=== PATIENT | male | born 1965 | race African-American/Black ===

== ENCOUNTER 2020-04-19 13:22 | Emergency (ER) | payer OTHER ==
[2020-04-19] MEDS ORDERED: ONDANSETRON HCL INJ/PF 4 MG/2 ML SDV IV ONE ×2 (13:34→15:10)
--- NOTE | 2020-04-19 13:35 | ER Document Report ---
ED Medical Screen (RME) - General Chief Complaint: Nausea/Vomiting Stated Complaint: NAUSEA,VOMITING,FEVER Time Seen by Provider: 04/19/20 13:30 Primary Care Provider: LISETTE VALDES MD [Primary Care Provider] - Follow up as needed Notes: Patient presents complaining of abdominal pain that started yesterday that has persisted today. Patient states pain initially started to left lower quadrant but has moved to the generalized abdominal area. Patient states today around 1030 he developed chest pain. Patient reports nausea and vomiting times multiple episodes with some mild shortness of breath. Patient denies any cough or cold symptoms. Patient denies diarrhea. Patient states that he will very cold as well. Patient does have a history of hypertension, diabetes and dyslipidemia. I have greeted and performed a rapid initial assessment of this patient. A comprehensive ED assessment and evaluation of the patient, analysis of test results and completion of the medical decision making process will be conducted by additional ED providers. TRAVEL OUTSIDE OF THE [place] IN LAST 30 DAYS: No - Related Data Allergies/Adverse Reactions: No Known Allergies Allergy (Verified 04/19/20 13:30) Physical Exam - Vital signs Vitals: Temp Pulse Resp BP Pulse Ox 97.9 F 76 20 132/80 H 95 04/19/20 13:25 04/19/20 13:25 04/19/20 13:25 04/19/20 13:25 04/19/20 13:25 - Respiratory Respiratory status: No respiratory distress Breath sounds: Normal - Cardiovascular Rhythm: Regular Heart sounds: S1 appreciated, S2 appreciated Course - Vital Signs Vital signs: Temp Pulse Resp BP Pulse Ox 97.9 F 76 20 132/80 H 95 04/19/20 13:25 04/19/20 13:25 04/19/20 13:25 04/19/20 13:25 04/19/20 13:25 Doctor's Discharge - Discharge Referrals: LISETTE VALDES MD [Primary Care Provider] - Follow up as needed
--- NOTE | 2020-04-19 14:32 | RADIOLOGY REPORT (SQ) ---
EXAM DESCRIPTION: ACUTE ABDOMEN SERIES IMAGES COMPLETED DATE/TIME: 04/19/2020 2:22 pm REASON FOR STUDY: cp, abd pain COMPARISON: None. NUMBER OF VIEWS: Three views. TECHNIQUE: Frontal chest, supine abdomen and upright/decubitus abdomen radiographic images acquired. LIMITATIONS: None. FINDINGS: CHEST: Lungs clear of infiltrates. FREE AIR: None. No abnormal gas collections. BOWEL GAS PATTERN: Moderate constipation. No obstruction. CALCIFICATIONS: Soft tissue calcification in both proximal thighs. HARDWARE: None in the abdomen. SOFT TISSUES: No gross mass or suggestion of organomegaly. BONES: No acute fracture. No worrisome bone lesions. OTHER: No other significant finding. IMPRESSION: Moderate constipation. No obstruction. TECHNICAL DOCUMENTATION: JOB ID: [id number] [employer]- All Rights Reserved Reading location - IP/workstation name: [email or web address]
[2020-04-19 14:50] LABS: ABSOLUTE BASOPHILS # (AUTO) 0.1 10^3/uL (0.0-0.2); ABSOLUTE LYMPHOCYTES (AUTO) 1.9 10^3/uL (0.5-4.7); ABSOLUTE MONOCYTES (AUTO) 0.4 10^3/uL (0.1-1.4); ABSOLUTE NEUT (AUTO) 9.5 10^3/uL (1.7-8.2); BASOPHILS % (AUTO) 0.8 % (0-2); HEMATOCRIT 38.9 % (37.9-51.0); HEMOGLOBIN 13.1 g/dL (13.5-17.0); LYMPHOCYTES % (AUTO) 15.7 % (13-45); MEAN CORPUSCULAR HEMOGLOBIN 28.9 pg (27.0-33.4); MEAN CORPUSCULAR HGB CONC 33.7 g/dL (32.0-36.0); MEAN CORPUSCULAR VOLUME 86 fl (80-97); MONOCYTES % (AUTO) 3.5 % (3-13); PLATELET COUNT 389 10^3/uL (150-450); RED BLOOD COUNT 4.53 10^6/uL (4.35-5.55); RED CELL DISTRIBUTION WIDTH 16.6 % (11.5-14.0); TOTAL CELLS COUNTED % (AUTO) 100 %; WHITE BLOOD COUNT 11.8 10^3/uL (4.0-10.5)
[2020-04-19 14:58] LABS: ALBUMIN 4.5 g/dL (3.5-5.0); ALKALINE PHOSPHATASE 80 U/L (38-126); ANION GAP 12 (5-19); ASPARTATE AMINO TRANSFERASE 37 U/L (17-59); BILIRUBIN,TOTAL 1.6 mg/dL (0.2-1.3); BLOOD UREA NITROGEN 16 mg/dL (7-20); CALCIUM 10.1 mg/dL (8.4-10.2); CARBON DIOXIDE 26 mmol/L (22-30); CHLORIDE 101 mmol/L (98-107); GLUCOSE 214 mg/dL (75-110); POTASSIUM 3.9 mmol/L (3.6-5.0); TOTAL PROTEIN 8.2 g/dL (6.3-8.2)
[2020-04-19] MEDS ORDERED: NORMAL SALINE 500 ML IV ONE (15:10)
--- NOTE | 2020-04-19 15:17 | ER Document Report ---
ED General - General Chief Complaint: Abdominal Pain >50 Stated Complaint: NAUSEA,VOMITING,FEVER Time Seen by Provider: 04/19/20 13:30 Primary Care Provider: LISETTE VALDES MD [Primary Care Provider] - Follow up as needed TRAVEL OUTSIDE OF THE [place] IN LAST 30 DAYS: No - HPI Notes: Patient is a 54-year-old male who presents emergency department for evaluation of abdominal pain and chest pain. Yesterday morning he stated he developed left lower quadrant pain. He described as sharp and stabbing, states it felt similar to a gas pain. He states that that pain resolved after a few hours, but he developed pain in his epigastrium up to his chest. He describes that as a pressure. He states that was present since approximately noon yesterday, present constantly since onset, including while at rest, and when he woke this morning. He states he was trying to belch to get the pain to the resolve, at that time he started having episodes of emesis. He reports 5-6 episodes of nonbloody, nonbilious emesis. He had a normal bowel movement this morning. No fevers or chills. He denies any coughing or shortness of breath. He describes the pain again as a pressure it is nonradiating. He denies any associated shortness of breath, diaphoresis, near syncope. - Related Data Allergies/Adverse Reactions: No Known Allergies Allergy (Verified 04/19/20 13:30) Home Medications: List reviewed at bedside Past Medical History - General Information source: Patient - Social History Smoking Status: Current Some Day Smoker - Cigars Frequency of alcohol use: Occasional Drug Abuse: None Family History: Malignancy - Pancreatic cancer in father, Other - CHF - Past Medical History Cardiac Medical History: Reports: Hx Hypercholesterolemia, Hx Hypertension Denies: Hx Coronary Artery Disease, Hx DVT, Hx Heart Attack, Hx Pulmonary Embolism Pulmonary Medical History: Denies: Hx Asthma, Hx COPD Neurological Medical History: Denies: Hx Cerebrovascular Accident, Hx Seizures Endocrine Medical History: Reports: Hx Diabetes Mellitus Type 2 Renal/ Medical History: Denies: Hx End Stage Renal Disease, Hx Renal Insufficiency GI Medical History: Denies: Hx Crohn's Disease, Hx Gastroesophageal Reflux Disease, Hx Ulcerative Colitis Review of Systems - Review of Systems Constitutional: No symptoms reported EENT: No symptoms reported Cardiovascular: See HPI Respiratory: No symptoms reported Gastrointestinal: See HPI Musculoskeletal: No symptoms reported Skin: No symptoms reported Neurological/Psychological: No symptoms reported Physical Exam - Vital signs Vitals: Temp Pulse Resp BP Pulse Ox 97.9 F 76 20 132/80 H 95 04/19/20 13:25 04/19/20 13:25 04/19/20 13:25 04/19/20 13:25 04/19/20 13:25 - Notes Notes: Vital signs reviewed, please refer to chart. Head is normocephalic, atraumatic. Pupils equal round, reactive to light. Neck is supple without meningismus. Heart is regular rate and rhythm. Lungs are clear to auscultation bilaterally. Abdomen is soft, nontender, normoactive bowel sounds throughout. Extremities without cyanosis, clubbing. Posterior calves are nontender. Peripheral pulses are equal. Skin is warm and dry. Patient is awake, alert, neurological exam is nonfocal. Course - Re-evaluation Re-evalutation: 04/19/20 15:19 Patient presents emergency department for evaluation. On history he states that he had a similar episode back in the beginning of March. He complained initially of abdominal pain but his abdomen is entirely nontender. Laboratory investigations are ordered. Patient is currently stable, complaining of some nausea but minimal pain. He is given IV fluids, Zofran. He is on the front desk monitor, showing frequent PVCs which is not a new problem for him. Otherwise no acute complaints, we will continue to monitor. 04/19/20 17:29 Patient has had significant improvement in his nausea and pain after the Zofran and GI cocktail. Is still awaiting his urinalysis. He states he feels he may have to have a bowel movement soon. He did have symptoms consistent more with a gastroenteritis last time around. I explained to the patient that there are multiple possible diagnoses on the differential at this point, but his troponin was negative. Electrolytes are unremarkable. His x-ray only shows constipation. His serial abdominal exams are benign. I strongly encouraged him to follow-up with his primary care provider and discuss possible referral into cardiology for stress test. He has multiple risk factors, and he did have pain into his chest. He voiced understanding. Otherwise the suspect more of a GI etiology. Assuming a normal urinalysis I will send the patient home with Zofran and close follow-up. 04/19/20 17:57 Urinalysis unremarkable. Patient will be discharged with Zofran. - Vital Signs Vital signs: Temp Pulse Resp BP Pulse Ox 97.9 F 76 20 136/71 H 95 04/19/20 13:25 04/19/20 13:25 04/19/20 18:01 04/19/20 18:01 04/19/20 17:00 - Laboratory Results Result Diagrams: 04/19/20 14:10 04/19/20 14:10 Laboratory Results Interpreted: 04/19/20 04/19/20 04/19/20 14:10 14:10 17:05 WBC 11.8 H Hgb 13.1 L RDW 16.6 H Absolute Neuts (auto) 9.5 H Seg Neutrophils % 80.0 H Glucose 214 H Total Bilirubin 1.6 H Urine Glucose (UA) >=500 H Critical Laboratory Results Reviewed: No Critical Results - Radiology Results Radiology Results Interpreted: 04/19/20 17:31 Acute Abdomen Series 04/19/20 13:34 IMPRESSION: Moderate constipation. No obstruction. Critical Radiology Results Reviewed: No Critical Results Discharge - Discharge Clinical Impression: Chest pain, Epigastric pain, Nausea and vomiting Condition: Stable Disposition: HOME, SELF-CARE Instructions: Abdominal Pain ([facility]), Chest Pain of Unclear Cause ([facility]), Nausea or Vomiting, Nonspecific ([facility]) Additional Instructions: No clear cause was identified for your pain today. Follow-up closely with your primary care doctor. He should discuss possible further cardiac testing, including a possible stress test, for your ongoing chest pain given your risk factors. Otherwise Zofran as needed for nausea. Start with clear liquids, advance diet slowly. If you develop increased pain, worsening vomiting, shortness of breath, or any other new or concerning symptoms, please return immediately to the emergency department for evaluation. Prescriptions: Ondansetron [Zofran Odt 4 mg Tablet] 1 - 2 tab PO Q4H PRN #15 tab.rapdis PRN Reason: For Nausea/Vomiting Referrals: LISETTE VALDES MD [Primary Care Provider] - Follow up as needed
[2020-04-19] MEDS ORDERED: MAG HYDROX/AL HYDROX/SIMETH SUSP 30 ML UDCUP PO ONE (15:58)
[2020-04-19] MEDS ORDERED: LIDOCAINE 2% VISCOUS SOLN 15 ML UDCUP PO ONE (15:58)
[2020-04-19 17:48] LABS: APPEARANCE,URINE CLEAR; BILIRUBIN,URINE NEGATIVE (NEGATIVE); COLOR,URINE YELLOW; GLUCOSE, URINE >=500 mg/dL (NEGATIVE); KETONES,URINE NEGATIVE (NEGATIVE); LEUKOCYTE ESTERASE,URINE NEGATIVE (NEGATIVE); NITRITE,URINE NEGATIVE (NEGATIVE); PROTEIN,URINE NEGATIVE (NEGATIVE); URINE SPECIFIC GRAVITY 1.036; UROBILINOGEN,URINE NEGATIVE mg/dL (<2.0)
[2020-04-19] MEDS ORDERED: ONDANSETRON ODT 4 MG TAB (6 TAB/ER DISP) PO PRN (17:57)
--- NOTE | 2020-04-19 18:02 | EKG REPORT ---
SEVERITY:- ABNORMAL ECG - SINUS RHYTHM MULTIPLE VENTRICULAR PREMATURE COMPLEXES BORDERLINE LEFT AXIS DEVIATION : Confirmed by: Johnson Dupont MD 19-Apr-2020 18:01:17
[2020-04-19 18:39] VITALS: BP 136/71
== END 2020-04-19 18:39 | disposition home or self-care (01) ==
LOC: ER 13:22
DX: K59.00 Constipation, unspecified (principal); R10.13 Epigastric pain; R07.89 Other chest pain; R11.2 Nausea with vomiting, unspecified; I10 Essential (primary) hypertension; E11.9 Type 2 diabetes mellitus without complications; F17.290 Nicotine dependence, other tobacco product, uncomplicated; I49.3 Ventricular premature depolarization
CPT/HCPCS: 93005; 99285; 96361; 96374; 36415; 83735; 85025; 80053; 81001; 84484; 74022; 93010; J3490; J2405; J7040